=== PATIENT | female | born 1990 | race Caucasian/White ===

== ENCOUNTER 2021-10-15 15:59 | Emergency (ER) | payer MEDICAID ==
[~2021-10-15] VITALS: Ht 157.5 cm; Wt 119.3 kg
[2021-10-15] MEDS ORDERED: IV NORMAL SALINE 1,000ML 1,000 ML IV SCH (16:30)
--- NOTE | 2021-10-15 16:31 | PHYS DOC ---
Adult General Chief Complaint Chief Complaint: ABDOMINAL PAIN [facility] HPI Patient is a 31year old female who presents with complaint of abdominal pain. Patient states that she has an abdominal hernia that has been present shortly after undergoing surgery for a left oophorectomy in July 2020. She states that she has had discomfort in this area, however over the past 3 weeks she has noticed increasing pain and discomfort at her hernia site. She has not followed with a general surgeon at this time. Denies associated shortness of breath, fever, bloody stools, or vomiting but does note nausea at this time. He has been taking ibuprofen at home but notes no significant improvement. Review of Systems Review of Systems Constitutional: Denies fever or chills [] Eyes: Denies change in visual acuity, redness, or eye pain [] HENT: Denies nasal congestion or sore throat [] Respiratory: Denies cough or shortness of breath [] Cardiovascular: No additional information not addressed in HPI [] GI: Abdominal pain, nausea, denies vomiting, bloody stools or diarrhea [] : Denies dysuria or hematuria [] Musculoskeletal: Denies back pain or joint pain [] Integument: Denies rash or skin lesions [] Neurologic: Denies headache, focal weakness or sensory changes [] All other systems were reviewed and found to be within normal limits, except as documented in this note. Allergies Allergies Allergies Coded Allergies Type Severity Reaction Last Updated Verified latex Allergy Unknown 10/15/21 Yes Physical Exam Physical Exam Constitutional: Alert, obese, afebrile, appears in mild discomfort. [] HENT: Normocephalic, atraumatic, bilateral external ears normal, oropharynx moist, no oral exudates, nose normal. [] Eyes: PERRLA, EOMI, conjunctiva normal, no discharge. [] Neck: Normal range of motion, no tenderness, supple, no stridor. [] Cardiovascular:Heart rate regular rhythm, no murmur [] Lungs & Thorax: Bilateral breath sounds clear to auscultation [] Abdomen: Bowel sounds normal, soft, periumbilical tenderness to palpation superior to umbilicus with palpable reducible hernia at the site, no masses, no pulsatile masses. [] Skin: Warm, dry, no erythema, no rash. [] Back: No tenderness, no CVA tenderness. [] Extremities: No tenderness, no cyanosis, no clubbing, ROM intact, no edema. [] Neurologic: Alert and oriented X 3, normal motor function, normal sensory function, no focal deficits noted. [] Current Patient Data Vital Signs Vital Signs Date Time Temp Pulse Resp B/P (MAP) Pulse Ox O2 Delivery O2 Flow Rate FiO2 10/15/21 16:00 98.8 130 20 153/95 (114) 98 Room Air Lab Results Laboratory Tests Test 10/15/21 16:03 10/15/21 16:50 Bedside Urine HCG, Qualitative hcg negative White Blood Count 8.8 x10^3/uL Red Blood Count 5.40 x10^6/uL Hemoglobin 11.2 g/dL Hematocrit 35.9 % Mean Corpuscular Volume 67 fL Mean Corpuscular Hemoglobin 21 pg Mean Corpuscular Hemoglobin Concent 31 g/dL Red Cell Distribution Width 17.7 % Platelet Count 377 x10^3/uL Neutrophils (%) (Auto) 54 % Lymphocytes (%) (Auto) 37 % Monocytes (%) (Auto) 6 % Eosinophils (%) (Auto) 3 % Basophils (%) (Auto) 1 % Neutrophils # (Auto) 4.7 x10^3uL Lymphocytes # (Auto) 3.2 x10^3/uL Monocytes # (Auto) 0.5 x10^3/uL Eosinophils # (Auto) 0.2 x10^3/uL Basophils # (Auto) 0.1 x10^3/uL Urine Collection Type Clean catch Urine Color Yellow Urine Clarity Clear Urine pH 6.0 Urine Specific [place] >=1.030 Urine Protein Neg Urine Glucose (UA) Neg mg/dL Urine Ketones (Stick) Neg mg/dL Urine Blood Neg Urine Nitrite Neg Urine Bilirubin Neg Urine Urobilinogen Dipstick 0.2 mg/dL Urine Leukocyte Esterase Neg Urine RBC 0 /HPF Urine WBC 0 /HPF Urine Squamous Epithelial Cells Many /LPF Urine Bacteria 0 /HPF Urine Test Negative Sodium Level 136 mmol/L Potassium Level 4.2 mmol/L Chloride Level 101 mmol/L Carbon Dioxide Level 25 mmol/L Anion Gap 10 Blood Urea Nitrogen 14 mg/dL Creatinine 0.8 mg/dL Estimated GFR (Cockcroft-Gault) 83.1 BUN/Creatinine Ratio 18 Glucose Level 105 mg/dL Lactic Acid Level 1.5 mmol/L Calcium Level 9.1 mg/dL Total Bilirubin 0.1 mg/dL Aspartate Amino Transf (AST/SGOT) 16 U/L Alanine Aminotransferase (ALT/SGPT) 33 U/L Alkaline Phosphatase 82 U/L Total Protein 7.3 g/dL Albumin 3.7 g/dL Albumin/Globulin Ratio 1.0 Lipase 103 U/L Current Medications Medications (Trade) Dose Ordered Sig/Maryana Route PRN Reason Start Time Stop Time Status Last Admin Dose Admin Sodium Chloride 1,000 ml @ 1,000 mls/hr Q1H IV 10/15/21 16:30 10/15/21 17:29 DC 10/15/21 17:43 Morphine Sulfate (Morphine 4mg Syringe) 4 mg 1X ONCE IV 10/15/21 17:30 10/15/21 17:36 DC 10/15/21 17:44 Ondansetron HCl (Zofran) 4 mg 1X ONCE IVP 10/15/21 17:30 10/15/21 17:36 DC 10/15/21 17:44 EKG EKG Not performed [] Radiology/Procedures Radiology/Procedures [address] [address] IMAGING REPORT Signed PATIENT: ZAHIDA CASILLAS DACCOUNT: [id number] : 1990 LOCATION: ER AGE: 31 SEX: F EXAM STATUS: REG ER ORD. PHYSICIAN: LORA YANES MD REASON: periumbilical abdominal pain, hx of ventral hernia PROCEDURE: CT ABDOMEN PELVIS WO CONTRAST CT ABDOMEN+PELVIS WO History: Periumbilical abdominal pain, history of ventral hernia. Comparison: None. Technique: Noncontrast CT of the abdomen and pelvis. Findings: The lung bases are clear. The heart is unremarkable. Diffuse hypoattenuation the liver compatible with steatosis. The gallbladder is relatively decompressed. The pancreas, spleen, adrenal glands, and kidneys are unremarkable. The stomach, small bowel, appendix and colon are within normal limits. The bladder, uterus and adnexa are unremarkable. No intra-abdominal free air or free fluid. The unenhanced vasculature is unremarkable. There is a left periumbilical ventral hernia containing peritoneal fat with broad neck measuring 3.7 x 3.0 cm. The hernia sac measures approximately 7.6 x 6.6 x 4.4 cm. Tiny adjacent fat-containing umbilical hernia. Linear scarring in the infraumbilical midline abdominal wall likely relates to postsurgical changes. Schmorl's node and mild wedging of the L3 vertebral body. Central disc protrusion at L5-S1. Impression: 1. Large left periumbilical fat-containing ventral hernia with broad neck. 2. Hepatic steatosis. ------ Exposure: One or more of the following individualized dose reduction techniques were utilized for this examination: 1. Automated exposure control 2. Adjustment of the mA and/or kV according to patient size 3. Use of iterative reconstruction technique. Electronically signed by: Trevon Lynn MD (10/15/2021 5:07 PM) [id number] DICTATED AND SIGNED BY: TREVON LYNN MD DATE: 10/15/211701 CC: LORA YANES MD; PERCY COE MD ~ [] Heart Score C/O Chest Pain: No Risk Factors: Risk Factors: DM, Current or recent (<one month) smoker, HTN, HLP, family history of CAD, obesity. Risk Scores: Risk Factors: DM, Current or recent (<one month) smoker, HTN, HLP, family history of CAD, obesity. Course & Med Decision Making Course & Med Decision Making Pertinent Labs and Imaging studies reviewed. (See chart for details) CT imaging performed shows evidence of ventral hernia but does not contain bowel. Lab work reviewed and shows no convincing evidence for acute infection or strangulation. Patient's condition is stable at this time. Will refer patient to general surgery for outpatient evaluation of her hernia. Provided with prescription for Zofran and hydrocodone for treatment of pain symptoms at home and recommend that she follow-up with general surgery at next available appointment in the next 1 to 2 weeks. Recommend return to the emergency department for any worsening symptoms. Patient voiced understanding and in agreement with treatment plan. [] Dragon Disclaimer Dragon Disclaimer This electronic medical record was generated, in whole or in part, using a voice recognition dictation system. Departure Departure: Impression: Primary Impression: Ventral hernia Disposition: HOME / SELF CARE / HOMELESS Condition: STABLE Referrals: PERCY COE MD (PCP) SAM DAVILA MD Patient Instructions: Hernia Additional Instructions: Contact the office of Dr. Davila of general surgery to set up an appointment in the next 1 to 2 weeks for outpatient consultation regarding your hernia. Return to the emergency department for any worsening symptoms. Scripts Ondansetron (ONDANSETRON ODT) 4 Mg Tab.rapdis 1 TAB PO Q8HRS PRN for NAUSEA/VOMITING, #16 TAB Prov: LORA YANES MD 10/15/21 Hydrocodone/Acetaminophen (Hydrocodone-Acetamin 5-325 mg) 1 Each Tablet 1 EACH PO Q4-6HRS PRN for PAIN, #18 TAB Prov: LORA YANES MD 10/15/21 Problem Qualifiers Primary Impression: Ventral hernia Obstruction and gangrene presence: without obstruction or gangrene Qualified Codes: K43.9 - Ventral hernia without obstruction or gangrene LORA YANES MD October 15, 2021 16:31
--- NOTE | 2021-10-15 17:09 | RAD ---
CT ABDOMEN+PELVIS WO History: Periumbilical abdominal pain, history of ventral hernia. Comparison: None. Technique: Noncontrast CT of the abdomen and pelvis. Findings: The lung bases are clear. The heart is unremarkable. Diffuse hypoattenuation the liver compatible with steatosis. The gallbladder is relatively decompress ed. The pancreas, spleen, adrenal glands, and kidneys are unremarkable. The stomach, small bowel, appendix and colon are within normal limits. The bladder, uterus and adnexa are unremarkable. No intra-abdominal free air or free fluid. The unenh anced vasculature is unremarkable. There is a left periumbilical ventral hernia containing peritoneal fat with broad neck measuring 3.7 x 3.0 cm. The hernia sac measures approximately 7.6 x 6.6 x 4.4 cm. Tiny adjacent fat-containing umbi lical hernia. Linear scarring in the infraumbilical midline abdominal wall likely relates to postsurg ical changes. Schmorl's node and mild wedging of the L3 vertebral body. Central disc protrusion at L5 -S1. Impression: 1. Large left periumbilical fat-containing ventral hernia with broad neck. 2. Hepatic steatosis. ------ Exposure: One or more of the following individualized dose reduction techniques were utilized for thi s examination: 1. Automated exposure control 2. Adjustment of the mA and/or kV according to patient size 3. Use of iterative reconstruction technique. Electronically signed by: Trevon Mckeon MD (10/15/2021 5:07 PM) [id number]
[2021-10-15 17:19] LABS: BASO # 0.1 x10^3/uL (0.0-0.2); BASO % 1 % (0-3); EOS # 0.2 x10^3/uL (0.0-0.7); EOS % 3 % (0-3); HEMATOCRIT 35.9 % (36.0-47.0); HEMOGLOBIN 11.2 g/dL (12.0-15.5); LYMPH # 3.2 x10^3/uL (1.0-4.8); LYMPH % 37 % (24-48); MEAN CORPUSCULAR HEMOGLOBIN 21 pg (25-35); MEAN CORPUSCULAR HGB CONC 31 g/dL (31-37); MEAN CORPUSCULAR VOLUME 67 fL (79-100); MONO # 0.5 x10^3/uL (0.0-1.1); MONO % 6 % (0-9); NEUT # 4.7 x10^3uL (1.8-7.7); NEUT % 54 % (31-73); PLATELET COUNT 377 x10^3/uL (140-400); RED CELL DISTRIBUTION WIDTH 17.7 % (11.5-14.5); WHITE BLOOD COUNT 8.8 x10^3/uL (4.0-11.0)
[2021-10-15 17:24] LABS: U PREG PATIENT NEGATIVE (NEG)
[2021-10-15] MEDS ORDERED: ONDANSETRON PF 4 MG/2 ML VIAL. IVP ONE (17:30)
[2021-10-15] MEDS ORDERED: MORPHINE SULFATE 4 MG/ML DISP.SYRIN. IV ONE (17:30)
[2021-10-15 17:39] LABS: CALCIUM 9.1 mg/dL (8.5-10.1); CREATININE 0.8 mg/dL (0.6-1.0); GFR 83.1; POTASSIUM 4.2 mmol/L (3.5-5.1)
[2021-10-15 17:45] LABS: ALBUMIN 3.7 g/dL (3.4-5.0); TOTAL BILIRUBIN 0.1 mg/dL (0.2-1.0); TOTAL PROTEIN 7.3 g/dL (6.4-8.2)
[2021-10-15 17:52] LABS: CLARITY,URINE CLEAR; COLOR,URINE YELLOW; GLUCOSE,URINE NEG (NEG); NITRITE,URINE NEG (NEG); UROBILINOGEN,URINE 0.2 mg/dL (0.2 mg/dL)
[2021-10-15 17:53] LABS: BACTERIA,URINE 0 /HPF (0-FEW); RBC,URINE 0 /HPF (0-2); SQUAMOUS EPITHELIAL CELL,UR MANY /LPF; WBC,URINE 0 /HPF (0-4)
[2021-10-15 18:30] VITALS: BP 132/78
[2021-10-15] MEDS ORDERED: HYDR-2759 PO (18:33)
[2021-10-15] MEDS ORDERED: ONDA4TAB12 PO (18:33)
[2021-10-15 19:59] LABS: ANISOCYTOSIS SLIGHT; HYPOCHROMIA SLIGHT; MICROCYTOSIS MOD; PLT ESTIMATE ADEQUATE (ADEQUATE)
== END 2021-10-15 18:58 | disposition home or self-care (01) ==
LOC: ER 15:59
DX: K43.9 Ventral hernia without obstruction or gangrene (principal); Z91.040 Latex allergy status
CPT/HCPCS: 36415; 74176; 80053; 81001; 81025; 83605; 83690; 85025; 96361; 96374; 96375; 99284; J2270; J2405; J7030